=== PATIENT | female | born 1945 | race Caucasian/White ===

== ENCOUNTER → 2019-11-20 | Outpatient (CLI) | payer MEDICARE, OTHER ==
--- NOTE | 2019-11-20 14:13 | Diagnostic Imaging Report ---
EXAMINATION: THORACIC SPINE 2VW INDICATION: Back pain COMPARISON: None FINDINGS: AP and lateral radiograph of the thoracic spine demonstrate no acute fracture or dislocation. Vertebral body heights are well-maintained. Thoracic spine alignment is normal. Degenerative changes of the cervical spine most notably at C5-6 and C6-7 with disc space narrowing and osteophyte formation and reversal of the normal cervical lordosis. IMPRESSION: Normal thoracic spine alignment without acute osseous injury. Moderate focal degenerative changes of the lower cervical spine with disc space narrowing, osteophyte formation, and reversal of normal cervical lordosis. Signed by: Robert Coleman MD on 11/20/2019 2:09 PM
--- NOTE | 2019-11-20 14:36 | Diagnostic Imaging Report ---
EXAM: BONE MINERAL DENSITY HISTORY: Postmenopausal state COMPARISON: None DISCUSSION: Evaluation of the left hip and lumbar spine was performed utilizing DEXA Hologic bone densitometer. The study is technically adequate. The patient's fracture risk is compared to an age-matched control. The patient denies prior surgery/fracture of the spine, hips or forearm. Left hip femoral neck bone mineral density: 0.953 g/cm2, T-score is 0.7, Z-score is 2.7. Left hip total bone mineral density: 1.097 g/cm2, T-score is 1, Z-score is 2.8. Lumbar spine total bone mineral density: 1.018 gm/cm2, T-score is -0.3, Z-score is 2.1. Impression: Bone mineralization by WHO Classification is normal, the fracture risk is not increased. Signed by: Dr. Mane Fallon M.D. on 11/20/2019 2:33 PM
== END ==
LOC: DX 12:36
PROVIDERS: ATTEND Internal Medicine
DX: Z12.31 Encounter for screening mammogram for malignant neoplasm of breast (principal); M54.6 Pain in thoracic spine; Z78.0 Asymptomatic menopausal state
CPT/HCPCS: 72070; 77067; 77080

== ENCOUNTER 2023-12-14 13:48 | Emergency (ER) | payer MEDICARE, OTHER ==
[~2023-12-14] VITALS: Ht 172.7 cm; Wt 83.7 kg
[2023-12-14] MEDS ORDERED: BIOTIN1000 MCG (14:36)
[2023-12-14] MEDS ORDERED: PRISTIQ ER50 MG PO (14:36)
[2023-12-14] MEDS ORDERED: VITAMIN D325 MCG (14:36)
[2023-12-14] MEDS ORDERED: zinc (14:36)
[2023-12-14] MEDS ORDERED: VITAMIN E400 UNI1 PO (14:36)
[2023-12-14] MEDS ORDERED: MOXIFLOXACIN3 ML (14:36)
[2023-12-14] MEDS ORDERED: DUPIXENT300 MG/2 M (14:36)
[2023-12-14] MEDS ORDERED: OMEPRAZOLE40 MG PO (14:36)
[2023-12-14] MEDS ORDERED: CYMBALTA30 MG (14:36)
[2023-12-14] MEDS ORDERED: CALCITRIOL0.5 MCG PO (14:36)
[2023-12-14] MEDS ORDERED: ROSUVASTATIN CA20 MG (14:36)
[2023-12-14] MEDS ORDERED: VITAMIN B12500 MCG (14:36)
[2023-12-14] MEDS ORDERED: HUMIRA40 MG/0.1 (14:36)
[2023-12-14] MEDS: ONDANSETRON HCL INJ 2MG/ML 2ML 2 MG/ML VIAL IV STA (15:04)
[2023-12-14] MEDS: SODIUM CHLORIDE 0.9% 1000ML 1,000 ML IV ONE (15:04)
[2023-12-14] MEDS ORDERED: ONDANSETRON ODT4 MG PO (15:41)
[2023-12-14 16:12] VITALS: PULSE 60; RESP 16; TEMP 98.4; O2SAT 98
== END 2023-12-14 16:12 | disposition home or self-care (01) ==
LOC: FSED 14:01
DX: R51.9 Headache, unspecified (principal); R11.0 Nausea; R31.9 Hematuria, unspecified; R05.9 Cough, unspecified
CPT/HCPCS: 70450; 71046; 80053; 81003; 85025; 96360; 96374; 99284; J2405; J7030